=== PATIENT | female | born 1980 | race Asian ===

== ENCOUNTER → 2018-06-08 | Outpatient (CLI) | payer OTHER | LOC: CIMAGING 17:03 | PROVIDERS: ATTEND Family Medicine | DX: R93.89 Abnormal findings on diagnostic imaging of other specified body structures (principal); Z83.71 Family history of colonic polyps | CPT/HCPCS: 76856-PO ==

== ENCOUNTER → 2018-07-09 | Outpatient (CLI) | payer OTHER | LOC: CIMAGING 09:06 | PROVIDERS: ATTEND Family Medicine | DX: R16.0 Hepatomegaly, not elsewhere classified (principal); K76.0 Fatty (change of) liver, not elsewhere classified | CPT/HCPCS: 76705-PO ==